=== PATIENT | male | born 1980 | race Caucasian/White ===

== ENCOUNTER 2016-10-23 17:23 | Inpatient (IN) | payer OTHER ==
[~2016-10-23] VITALS: Ht 175.3 cm; Wt 82.1 kg
[2016-10-23 17:26] VITALS: BP_SYST 149
[2016-10-23] MEDS ORDERED: ACTIVATED CHARCOAL 50 GM ORAL.SUSP PO ONE (18:00)
[2016-10-23 18:04] LABS: BASOPHILS % (AUTO) 0.5 % (0.0-2.0); EOSINOPHILS # (AUTO) 0.1 K/uL (0.0-0.4); EOSINOPHILS % (AUTO) 1.9 % (0.0-4.0); HEMATOCRIT 41.3 % (36-54); HEMOGLOBIN 13.8 g/dL (14.0-18.0); LYMPHOCYTES # (AUTO) 1.4 K/uL (1.0-5.5); LYMPHOCYTES % (AUTO) 28.1 % (20.5-51.5); MEAN CORPUSCULAR HEMOGLOBIN 28 pg (27-31); MEAN CORPUSCULAR HGB CONC 33 % (32-36); MEAN CORPUSCULAR VOLUME 83 fL (79.0-98.0); MONOCYTES # (AUTO) 0.5 K/uL (0.0-1.0); MONOCYTES % (AUTO) 9.9 % (1.7-9.3); NEUTROPHILS # (AUTO) 2.9 K/uL (1.8-7.7); NEUTROPHILS % (AUTO) 59.6 % (40.0-70.0); PLATELET COUNT (AUTO) 230 K/uL (130-430); RED BLOOD CELL COUNT(AUTO) 4.97 MIL/uL (4.2-6.2); RED CELL DISTRIBUTION WIDTH 12.9 % (9.0-15.0); WHITE BLOOD COUNT (AUTO) 4.9 K/uL (4.8-10.8)
[2016-10-23 18:06] LABS: ANION GAP 4 (5-15); CALCIUM 9.1 mg/dL (8.4-11.0); CHLORIDE 104 mmol/L (98-107); GLUCOSE 127 mg/dL (70-99); POTASSIUM 3.6 mmol/L (3.5-5.1); SODIUM SERUM 137 mmol/L (136-145); UREA NITROGEN, BLOOD 17 mg/dL (8-21)
[2016-10-23 18:10] LABS: BILIRUBIN,URINE NEGATIVE (NEGATIVE); BLOOD, URINE NEGATIVE (NEGATIVE); CLARITY/URINE CLEAR (CLEAR); COLOR,URINE YELLOW (YELLOW); GLUCOSE,URINE NEGATIVE (NEGATIVE); KETONES,URINE NEGATIVE (NEGATIVE); LEUKOCYTE ESTERASE ,URINE NEGATIVE (NEGATIVE); NITRITE, URINE NEGATIVE (NEGATIVE); PROTEIN URINE NEGATIVE (NEGATIVE); UROBILINOGEN,URINE 0.2 (0.2-1.0)
[2016-10-23 18:11] LABS: GFR AFRICAN AMERICAN 108 mL/min (>90)
[2016-10-23 18:14] LABS: ALANINE AMINOTRANSFERASE 46 U/L (12-78); ASPARTATE AMINOTRANSFERASE 25 U/L (10-37); TOTAL BILIRUBIN 0.3 mg/dL (0.0-1.0); TOTAL PROTEIN, SERUM 7.2 g/dL (6.4-8.3)
[2016-10-23 18:15] LABS: ALCOHOL, BLOOD 23 mg/dL (<10); CREATINE KINASE, TOTAL 132 U/L (39-308); SALICYLATE 2 mg/dL (3-30)
[2016-10-23 18:17] LABS: INR 0.9 (0.80-1.20); PROTHROMBIN TIME 10.1 SECS (9.5-12.5)
[2016-10-23 18:23] LABS: BARBITURATE, URINE NEGATIVE (NEG <=200)
[2016-10-23 18:24] LABS: ACETAMINOPHEN < 1 ug/mL (1-30)
[2016-10-23 18:24] LABS: BENZODIAZEPINE, URINE NEGATIVE (NEG <=150); CANNABINOID, URINE NEGATIVE (NEG <=50); COCAINE, URINE NEGATIVE (NEG <=150); METHAMPHETAMINES SCREEN,URINE NEGATIVE (NEG <=500); OPIATE, URINE NEGATIVE (NEG <=100); PHENCYCLIDINE SCREEN,URINE NEGATIVE (NEG <=25); UR TRICYCLIC ANTIDEPRESSANTS POSITIVE (NEG <=300); URINE AMPHETAMINE NEGATIVE (NEG <=500); URINE METHADONE NEGATIVE (NEG <=200); URINE OXYCODONE SCREEN NEGATIVE (NEG <=100); URINE PROPOXYPHENE SCREEN NEGATIVE (NEG <=300)
[2016-10-23 21:29] VITALS: BP_SYST 134
[2016-10-23 21:30] VITALS: BP_SYST 134
[2016-10-23] MEDS ORDERED: DULO20CA PO (21:35)
[2016-10-23] MEDS ORDERED: SER25 PO (21:35)
[2016-10-23] MEDS ORDERED: GABA-529 PO (21:35)
[2016-10-23 22:00] VITALS: BP_SYST 135
[2016-10-23 23:00] VITALS: BP_SYST 112
[2016-10-24] VITALS (20 sets, daily range): BP systolic 93–140
[2016-10-24] MEDS: D5NS 1,000 ML IV SCH ×2 (10:16→20:29)
[2016-10-24] MEDS ORDERED: IBUPROFEN 400 MG TABLET ONE (13:43)
[2016-10-24] MEDS ORDERED: GABA-531 (15:18)
[2016-10-24] MEDS ORDERED: DULO60CA64 PO (15:18)
[2016-10-24] MEDS ORDERED: NEU300 PO (15:18)
[2016-10-24] MEDS ORDERED: SER100 PO (15:18)
[2016-10-24] MEDS ORDERED: IBUP-1969 PO (15:18)
[2016-10-24] MEDS ORDERED: BUPR1FIL SL (15:18)
[2016-10-24] MEDS: IBUPROFEN 800 MG TABLET PO PRN (21:29)
[2016-10-25] MEDS: D5NS 1,000 ML IV SCH (04:59)
[2016-10-25 05:26] VITALS: BP_SYST 140
[2016-10-25 08:00] VITALS: BP_SYST 141
[2016-10-25] MEDS: IBUPROFEN 800 MG TABLET PO PRN (11:27)
[2016-10-25 12:00] VITALS: BP_SYST 126
[2016-10-25 14:23] VITALS: BP_SYST 127
[2016-10-25] MEDS ORDERED: NICOTINE 14 MG/24 HR PATCH.TD24 TD SCH (17:00)
[2016-10-26] MEDS ORDERED: DULoxetine HCL 30 MG CAPSULE.DR (CYMBALTA) PO SCH (09:00)
== END 2016-10-25 14:40 | disposition home or self-care (01) | DRG 918 ==
LOC: SED 17:23 → SIC 21:00 → SMU 10-24 15:47
PROVIDERS: ADMIT Internal Medicine Hospice and Palliative Medicine; ATTEND Internal Medicine Hospice and Palliative Medicine
DX: T39.312A Poisoning by propionic acid derivatives, intentional self-harm, initial encounter (principal); R45.851 Suicidal ideations; F32.2 Major depressive disorder, single episode, severe without psychotic features; T43.012A Poisoning by tricyclic antidepressants, intentional self-harm, initial encounter; F41.9 Anxiety disorder, unspecified; T43.592A Poisoning by other antipsychotics and neuroleptics, intentional self-harm, initial encounter; G89.29 Other chronic pain; F17.200 Nicotine dependence, unspecified, uncomplicated; M54.9 Dorsalgia, unspecified; Y92.89 Other specified places as the place of occurrence of the external cause; Y93.89 Activity, other specified; Y99.8 Other external cause status
CPT/HCPCS: 36415; 71010; 80053; 80307; 81003; 82550-TC; 84443-TC; 84484; 85025; 85610-TC; 85730-TC; 87081; 93005; 99285; G0480; G0481; G0482; J7042